=== PATIENT | female | born 1945 | race Caucasian/White ===

== ENCOUNTER → 2016-11-14 | Outpatient (CLI) | payer OTHER, MEDICARE ==
[~2016-11-14] MED LIST: CHOL2000 PO
[2016-11-14 11:46] LABS: URINE APPEARANCE CLEAR (CLEAR); URINE BILIRUBIN NEG (NEG); URINE COLOR DK YELLOW; URINE EPITHELIAL CELL AUTO >30 /lpf (0-5); URINE NITRITE NEG (NEG); URINE SPECIFIC GRAVITY 1.023 (1.000-1.030); UROBILINOGEN NEG (NEG); ZZUR CULT IF INDIC CLEAN CATCH NO
[2016-11-14 11:48] LABS: MANUAL MICROSCOPIC REQUIRED? NO; REVIEW REQ? NO
== END ==
LOC: C.LABSPEC 11:43
PROVIDERS: ATTEND Internal Medicine
DX: R31.9 Hematuria, unspecified (principal)

== ENCOUNTER → 2016-11-19 | Outpatient (CLI) | payer OTHER, MEDICARE | END | disposition home or self-care (01) | LOC: C.LABSPEC 17:06 | PROVIDERS: ATTEND Nurse Practitioner Adult Health | DX: R31.0 Gross hematuria (principal) ==

== ENCOUNTER → 2016-12-07 | Outpatient (CLI) | payer OTHER, MEDICARE ==
[~2016-12-07] MED LIST changes: +OPTIRAY 320 IV PRN
--- NOTE | 2016-12-07 09:07 | DIAGNOSTIC IMAGING REPORT ---
ABD/PELVIS COMBO CLINICAL HISTORY: 71 years-old Female presenting with Gross hematuria, painless. TECHNIQUE: Multidetector CT of the abdomen and pelvis was performed before and after the administration of intravenous contrast. IV contrast: 115 mL of Optiray 320. COMPARISON: None. CT DOSE: The estimated cumulative dose is 2160.76 mGy.cm. FINDINGS: [employer] Reporting Accountant topogram: Total right hip arthroplasty. S-shaped scoliotic curvature of the thoracolumbar spine. Right lower quadrant surgical clip, likely resolution clip. Lung bases: Minimal reticular groundglass opacity in the paramediastinal right lower lobe, likely atelectasis. Normal heart size. No pericardial or pleural effusion. Liver: Normal morphology. No liver lesion. Patent hepatic vasculature. Biliary: No intrahepatic or extrahepatic biliary ductal dilatation. Minimal apparent wall thickening along the fundus may represent adenomyomatosis. No gallbladder distention or pericholecystic inflammatory change. Pancreas: Normal. Spleen: Top normal in size. Adrenal glands: Normal. Kidneys and ureters: No nephrolithiasis. Normal parenchymal enhancement. No hydronephrosis. Normal excretion bilaterally. Normal ureters. Gastrointestinal tract: Sigmoid diverticulosis. Masslike prominence of the ileocecal valve (series 4 image 49). No bowel obstruction. Peritoneal cavity: No free fluid or intraperitoneal gas. Bladder: Incompletely evaluated secondary to underdistention. Pelvic organs: Patient is status post hysterectomy. No adnexal masses. Vasculature: Atherosclerosis of the normal caliber abdominal aorta. IVC patent. Lymph nodes: Numerous surgical clips along the bilateral iliac regions, possibly from prior lymph node dissection. Associated infiltration along the medial aspect of the iliac bifurcation bilaterally, which is immediately adjacent to and abutting the ureters. No pathologic enlarged lymph nodes in the abdomen or pelvis. Abdominal wall: Normal. Musculoskeletal: Total right hip arthroplasty without hardware convocation. No acute osseous injury or destructive osseous lesion. Extensive degenerative changes of the lumbar spine. Erosive inferior endplate changes of T12, possibly large Schmorl's node and/or degenerative change. IMPRESSION: 1. No evidence of nephrolithiasis or obstructing urothelial mass. Although the ureters are abutted by postsurgical change in the region of the iliac bifurcations, no evidence of obstruction. No hydroureteronephrosis. 2. Masslike thickening at the ileocecal valve with an adjacent resolution clip. This is concerning for possible polypoid lesion. Correlate with colonoscopy findings. 3. Sigmoid diverticulosis. Electronically signed by: Malik Medina M.D. 12/07/2016 9:06 AM Dictated Date/Time: 12/07/2016 8:53 AM
[2016-12-07 09:55] LABS: BLOOD UREA NITROGEN 16 mg/dl (7-18); BUN/CREATININE RATIO 16.8 (10-20); CALCIUM 8.6 mg/dl (8.5-10.1); CARBON DIOXIDE 25 mmol/L (21-32); CHLORIDE 108 mmol/L (98-107); CREATININE 0.96 mg/dl (0.60-1.20); GLUCOSE 125 mg/dl (70-99); POTASSIUM 4.1 mmol/L (3.5-5.1); SODIUM 140 mmol/L (136-145)
[2016-12-07 10:05] LABS: ESTIMATED AVERAGE GLUCOSE 126 mg/dl; HA1C FLAG Normal (Normal)
== END | disposition home or self-care (01) ==
LOC: C.CTS 08:22
PROVIDERS: ATTEND Nurse Practitioner Adult Health
DX: R31.0 Gross hematuria (principal); R73.9 Hyperglycemia, unspecified